=== PATIENT | female | born 1970 ===

== ENCOUNTER 2022-06-01 22:57 | Emergency (ER) | payer SELFPAY ==
[2022-06-01] MEDS ORDERED: Potassium Chloride 10 MEQ Tab.ER PO ONE (22:58)
[2022-06-02 00:18] LABS: ANION GAP 11.8 mEq/L (7-13); CHLORIDE,CL 102 mmol/L (98-107); SODIUM,NA 140 mmol/L (136-145)
[2022-06-02 00:21] LABS: ESTIMATED GFR 107 mL/min (>=60)
[2022-06-02] MEDS ORDERED: Iopamidol 612 MG/ML 100 ML Bottle IVPUSH ONE (00:24)
[2022-06-02] MEDS ORDERED: Potassium Chloride 10 MEQ Tab.ER PO ONE (01:18)
[2022-06-02] MEDS ORDERED: Potassium Chloride 10 MEQ Tab.ER ONE (02:05)
== END 2022-06-02 02:07 | disposition home or self-care (01) ==
LOC: DL.ED 22:57
DX: K59.02 Outlet dysfunction constipation (principal); E87.6 Hypokalemia; K62.89 Other specified diseases of anus and rectum; F17.210 Nicotine dependence, cigarettes, uncomplicated
CPT/HCPCS: 36415; 74177; 80053; 81003; 82150; 83690; 84443; 85025; 99284; A9270; Q9967